=== PATIENT | female | born 1940 | race Caucasian/White ===

== ENCOUNTER → 2024-05-22 09:44 | Outpatient (REF) | payer MEDICARE, OTHER, SELFPAY | LOC: RAD 09:44 | PROVIDERS: ATTENDING PHYSICIAN Nurse Practitioner Adult Health; REFERRING PHYSICIAN Internal Medicine Cardiovascular Disease | DX: Z00.00 Encounter for general adult medical examination without abnormal findings (principal); F17.200 Nicotine dependence, unspecified, uncomplicated; M85.89 Other specified disorders of bone density and structure, multiple sites | CPT/HCPCS: 77080 ==